=== PATIENT | female | born 1955 | race Caucasian/White ===

== ENCOUNTER → 2016-09-12 | Outpatient (CLI) | payer MEDICARE, OTHER ==
[~2016-09-12] MED LIST: ADVAIR 250-501 EACH INH; ASPIR 8181 MG PO; BENADRYL 25MG C25 MG PO; COLACE 100MG C100 MG PO; DURAGESIC 100 MC1 EA TD; ELIQUIS2.5 MG PO; FEOSOL325 MG PO; FLONASE 0.05% N16 GM; LEVOTHYROXINE75 MCG PO; MELOXICAM15 MG PO; MOBIC15 MG PO; MONTELUKAST SOD10 MG PO; NITROSTAT 0.40.4 MG SL; OXYCODONE HCL E10 MG PO; OXYCONTIN60 MG PO; PERCOCET 10-321 EACH PO; PROTONIX 40 MG40 M1 PO; SIMVASTATIN40 MG PO; SPIRIVA18 MCG INH; VALIUM 2 MG TAB2 MG PO; VENTOLIN HFA 66.7 GM INH; VITAMIN B-1000 MCG/M IM; XARELTO10 MG PO; [UNRECOGNIZED DRUG - OTHER] PO
== END ==
LOC: MAMO 10:40
DX: Z12.31 Encounter for screening mammogram for malignant neoplasm of breast (principal)
CPT/HCPCS: G0202

== ENCOUNTER 2020-07-09 17:19 | Inpatient (IN) | payer OTHER ==
[~2020-07-09] VITALS: Ht 149.9 cm; Wt 79.7 kg
[~2020-07-09 17:19] MED LIST changes: +ADVAIR HFA 115/12 GM INH; +ASPIRIN EC81 MG PO; +DAILY MULTIPLE1 EAC1 PO; +IRON325 M1 PO; +LOPRESSOR 25 MG25 MG PO; +SPIRIVA RESPIMAT4 GM INH; -SPIRIVA18 MCG INH; +VIBRAMYCIN100 MG PO; +XTAMPZA; +ZANAFLEX4 MG PO; +ZANTAC150 MG PO; +ZOLOFT50 MG PO; +[UNRECOGNIZED DRUG - OTHER] PO
[2020-07-09 18:05] LABS: RED BLOOD COUNT 4.4 M/UL (4.00-5.10); WHITE BLOOD COUNT 11.3 K/UL (4.5-11.0)
[2020-07-09 18:28] LABS: BUN/CREATININE RATIO 13 (0-10)
[2020-07-09] MEDS ORDERED: ONDANSETRON HCL8 MG PO (20:37)
[2020-07-09] MEDS ORDERED: CYANOCOBAL1000 MCG/1 INJ (20:39)
[2020-07-09] MEDS ORDERED: VITAMIN D250 MCG PO (20:40)
[2020-07-10 07:27] LABS: HEMOGLOBIN 12.6 gm/dl (12.3-15.3); RED BLOOD COUNT 4.23 M/UL (4.00-5.10); WHITE BLOOD COUNT 13.9 K/UL (4.5-11.0)
[2020-07-10 07:49] LABS: BUN/CREATININE RATIO 8 (0-10)
[2020-07-13 03:41] LABS: HEMOGLOBIN 11.7 gm/dl (12.3-15.3); RED BLOOD COUNT 3.99 M/UL (4.00-5.10); WHITE BLOOD COUNT 14.4 K/UL (4.5-11.0)
[2020-07-13 04:08] LABS: BUN/CREATININE RATIO 20 (0-10)
[2020-07-14 04:25] LABS: HEMOGLOBIN 11.9 gm/dl (12.3-15.3); RED BLOOD COUNT 4.03 M/UL (4.00-5.10); WHITE BLOOD COUNT 14.5 K/UL (4.5-11.0)
[2020-07-14 04:41] LABS: BUN/CREATININE RATIO 25 (0-10)
[2020-07-15 03:09] LABS: HEMOGLOBIN 12.6 gm/dl (12.3-15.3); RED BLOOD COUNT 4.28 M/UL (4.00-5.10)
[2020-07-15 03:16] LABS: WHITE BLOOD COUNT 20.2 K/UL (4.5-11.0)
[2020-07-15 03:27] LABS: BUN/CREATININE RATIO 37 (0-10)
[2020-07-16 06:37] LABS: RED BLOOD COUNT 4.41 M/UL (4.00-5.10); WHITE BLOOD COUNT 19.1 K/UL (4.5-11.0)
[2020-07-16 07:14] LABS: BUN/CREATININE RATIO 36 (0-10)
[2020-07-17 07:01] LABS: HEMOGLOBIN 12.8 gm/dl (12.3-15.3); RED BLOOD COUNT 4.34 M/UL (4.00-5.10); WHITE BLOOD COUNT 17.5 K/UL (4.5-11.0)
[2020-07-17 07:34] LABS: BUN/CREATININE RATIO 29 (0-10)
[2020-07-18 03:01] LABS: HEMOGLOBIN 13.2 gm/dl (12.3-15.3); RED BLOOD COUNT 4.46 M/UL (4.00-5.10); WHITE BLOOD COUNT 18.4 K/UL (4.5-11.0)
[2020-07-18 03:21] LABS: BUN/CREATININE RATIO 28 (0-10)
[2020-07-19 03:08] LABS: HEMOGLOBIN 13.3 gm/dl (12.3-15.3); RED BLOOD COUNT 4.54 M/UL (4.00-5.10); WHITE BLOOD COUNT 19.3 K/UL (4.5-11.0)
[2020-07-19 03:32] LABS: BUN/CREATININE RATIO 45 (0-10)
[2020-07-20 03:55] LABS: HEMOGLOBIN 13.4 gm/dl (12.3-15.3); RED BLOOD COUNT 4.56 M/UL (4.00-5.10); WHITE BLOOD COUNT 16.7 K/UL (4.5-11.0)
[2020-07-20 04:15] LABS: BUN/CREATININE RATIO 41 (0-10)
--- NOTE | 2020-07-20 14:03 | NUR ---
2058 - CARDIOLOGY CALLED ABOUT PT MAXED OUT ON CARDIZEM DRIP AND HR STILL STAYING IN 170S.
[2020-07-21 02:44] LABS: HEMOGLOBIN 13.1 gm/dl (12.3-15.3); RED BLOOD COUNT 4.47 M/UL (4.00-5.10); WHITE BLOOD COUNT 18.1 K/UL (4.5-11.0)
[2020-07-21 03:02] LABS: BUN/CREATININE RATIO 29 (0-10)
[2020-07-22 04:33] LABS: HEMOGLOBIN 12.5 gm/dl (12.3-15.3); RED BLOOD COUNT 4.21 M/UL (4.00-5.10); WHITE BLOOD COUNT 15.8 K/UL (4.5-11.0)
[2020-07-22 05:02] LABS: BUN/CREATININE RATIO 29 (0-10)
[2020-07-22] MEDS ORDERED: ELIQUIS 5 MG TAB5 MG PO (16:25)
[2020-07-22] MEDS ORDERED: LOPRESSOR 50 MG50 MG PO (16:40)
== END 2020-07-22 17:57 | disposition home or self-care (01) | DRG 308 ==
LOC: ER1 17:19 → MED SURG 4 20:20 → CCU 20:20 → PROG CARE 20:20 → CDU 20:20 → CCU 07-10 00:13 → MED SURG 4 07-10 15:11 → PROG CARE 07-17 16:44
PROVIDERS: Internal Medicine; Preventive Medicine Occupational Medicine; ADMIT Internal Medicine
PROC: B24BZZZ Ultrasonography of Heart with Aorta (ICD-10-PCS; 2020-07-11)
PROC: 5A2204Z Restoration of Cardiac Rhythm, Single (ICD-10-PCS; principal; 2020-07-21)
DX: I48.91 Unspecified atrial fibrillation (principal); R57.8 Other shock; J96.21 Acute and chronic respiratory failure with hypoxia; J44.1 Chronic obstructive pulmonary disease with (acute) exacerbation; C77.9 Secondary and unspecified malignant neoplasm of lymph node, unspecified; C34.90 Malignant neoplasm of unspecified part of unspecified bronchus or lung; J98.11 Atelectasis; Z20.822 Contact with and (suspected) exposure to COVID-19; G25.0 Essential tremor; R13.10 Dysphagia, unspecified; J42 Unspecified chronic bronchitis; I34.1 Nonrheumatic mitral (valve) prolapse; I10 Essential (primary) hypertension; K21.9 Gastro-esophageal reflux disease without esophagitis; E78.5 Hyperlipidemia, unspecified; R07.89 Other chest pain; E03.9 Hypothyroidism, unspecified; F41.9 Anxiety disorder, unspecified; M51.36 Other intervertebral disc degeneration, lumbar region; J30.9 Allergic rhinitis, unspecified; T38.0X5A Adverse effect of glucocorticoids and synthetic analogues, initial encounter; E66.01 Morbid (severe) obesity due to excess calories; M41.9 Scoliosis, unspecified; Z96.651 Presence of right artificial knee joint; Z96.641 Presence of right artificial hip joint; Z88.5 Allergy status to narcotic agent; Z88.8 Allergy status to other drugs, medicaments and biological substances; Z68.35 Body mass index [BMI] 35.0-35.9, adult; Z82.49 Family history of ischemic heart disease and other diseases of the circulatory system; Z98.84 Bariatric surgery status; Z99.81 Dependence on supplemental oxygen; Z87.891 Personal history of nicotine dependence; Z90.49 Acquired absence of other specified parts of digestive tract; Z79.01 Long term (current) use of anticoagulants; Z79.82 Long term (current) use of aspirin; Z79.890 Hormone replacement therapy; Z79.899 Other long term (current) drug therapy; Z86.010 Personal history of colon polyps
CPT/HCPCS: ECHO; 36415; 36600; 71045; 71275; 80048; 80053; 82550; 82553; 82803; 82962; 83690; 83874; 83880; 84439; 84443; 84484; 85007; 85025; 85027; 85652; 86140; 93005; 93306; 94640; 94664; 94760; 96365; 96366; 97162; 97530; 99285; J1650; J2543; J2920; J2930; J7070; Q9967; U0002

== ENCOUNTER → 2020-12-18 | Outpatient (CLI) | payer OTHER ==
[~2020-12-18] MED LIST changes: +CYANOCOBAL1000 MCG/1 INJ; +ELIQUIS 5 MG TAB5 MG PO; +LOPRESSOR 50 MG50 MG PO; +ONDANSETRON HCL8 MG PO; +VITAMIN D250 MCG PO
== END ==
LOC: CT 10:30
DX: C34.2 Malignant neoplasm of middle lobe, bronchus or lung (principal)
CPT/HCPCS: 36415; 73201; 73701; 82565; Q9967

== ENCOUNTER 2021-02-06 06:28 | Emergency (ER) | payer OTHER ==
[2021-02-06 07:16] LABS: HEMOGLOBIN 11.4 gm/dl (12.3-15.3); RED BLOOD COUNT 3.49 M/UL (4.00-5.10); WHITE BLOOD COUNT 7.3 K/UL (4.5-11.0)
[2021-02-06 07:29] LABS: BUN/CREATININE RATIO 20 (0-10)
== END 2021-02-06 16:30 ==
LOC: ER1 06:28
PROVIDERS: Family Medicine
DX: I87.1 Compression of vein (principal); E11.9 Type 2 diabetes mellitus without complications; J44.9 Chronic obstructive pulmonary disease, unspecified; Z85.118 Personal history of other malignant neoplasm of bronchus and lung; Z88.5 Allergy status to narcotic agent; Z88.1 Allergy status to other antibiotic agents; Z20.822 Contact with and (suspected) exposure to COVID-19
CPT/HCPCS: 36600; 80053; 82550; 82553; 82803; 83605; 83735; 83874; 83880; 84439; 84443; 84484; 85025; 85610; 93005; 99285; J1885; J2765; Q9967; U0002

== ENCOUNTER → 2021-06-10 | Outpatient (CLI) | payer OTHER | LOC: EXRD 12:50 | DX: R05.9 Cough, unspecified (principal); R91.8 Other nonspecific abnormal finding of lung field | CPT/HCPCS: 71046 ==

== ENCOUNTER 2021-07-02 06:26 | Observation (INO) | payer OTHER ==
[~2021-07-02] VITALS: Ht 149.9 cm; Wt 69.9 kg
[~2021-07-02 06:26] MED LIST changes: -ADVAIR HFA 115/12 GM INH; -LEVOTHYROXINE75 MCG PO; -MONTELUKAST SOD10 MG PO; -PERCOCET 10-321 EACH PO; -SIMVASTATIN40 MG PO; -SPIRIVA RESPIMAT4 GM INH; -VALIUM 2 MG TAB2 MG PO; -VITAMIN D250 MCG PO
[2021-07-02 07:27] LABS: HEMOGLOBIN 11.8 gm/dl (12.3-15.3); RED BLOOD COUNT 3.66 M/UL (4.00-5.10); WHITE BLOOD COUNT 10.8 K/UL (4.5-11.0)
[2021-07-02 08:07] LABS: BUN/CREATININE RATIO 21 (0-10)
[2021-07-02] MEDS ORDERED: SPIRIVA RESPIMAT4 GM INH (09:53)
[2021-07-02] MEDS ORDERED: LEVOTHYROXINE88 MCG PO (09:56)
[2021-07-02] MEDS ORDERED: ZOCOR 40 MG TAB40 MG PO (09:57)
[2021-07-02] MEDS ORDERED: MONTELUKAST SOD10 MG PO (10:02)
[2021-07-02] MEDS ORDERED: VALIUM 2 MG TAB2 MG PO (10:03)
[2021-07-02] MEDS ORDERED: XTAMPZA ER36 MG PO (11:25)
[2021-07-02] MEDS ORDERED: XARELTO20 MG PO (11:26)
[2021-07-02] MEDS ORDERED: FLONASE ALLER15.8 ML (12:52)
[2021-07-02] MEDS ORDERED: PHENERGAN 25 MG25 M1 PO (12:53)
[2021-07-02] MEDS ORDERED: MEGA BIOTIN10000 MCG PO (12:56)
[2021-07-02] MEDS ORDERED: PERCOCET 10-321 EACH PO (13:38)
--- NOTE | 2021-07-02 17:27 | NUR ---
PT WAS BROUGHT TO 2 EAST/OBS UNIT UPON ARRIVAL DUST [employer] [facility] CALLED AND STATES PT NEEDS MOVED TO [facility] 4TH FLOOR CALLED REPORT TO [facility] ON 4TH FLOOR PT WAS MOVED TO ROOM [id number]
[2021-07-02] MEDS ORDERED: ADVAIR HFA 115/12 GM INH (17:43)
[2021-07-02] MEDS ORDERED: VITAMIN D250 MCG PO (20:40)
[2021-07-03 03:11] LABS: WHITE BLOOD COUNT 10.1 K/UL (4.5-11.0)
[2021-07-03 03:13] LABS: HEMOGLOBIN 9.6 gm/dl (12.3-15.3); RED BLOOD COUNT 2.99 M/UL (4.00-5.10)
[2021-07-03 03:42] LABS: BUN/CREATININE RATIO 24 (0-10)
[2021-07-04 03:02] LABS: HEMOGLOBIN 9.3 gm/dl (12.3-15.3); RED BLOOD COUNT 2.89 M/UL (4.00-5.10)
[2021-07-04 03:04] LABS: WHITE BLOOD COUNT 7.5 K/UL (4.5-11.0)
[2021-07-04 03:36] LABS: BUN/CREATININE RATIO 17 (0-10)
[2021-07-04] MEDS ORDERED: DOXYCYCLINE HY100 MG PO (09:04)
[2021-07-04] MEDS ORDERED: MAGNESIUM OXID250 MG PO (09:04)
[2021-07-04] MEDS ORDERED: OMNICEF 300 MG300 MG PO (10:44)
== END 2021-07-04 13:13 | disposition home or self-care (01) ==
LOC: ER1 06:26 → MED SURG 4 11:01 → CDU 11:01 → MED SURG 4 17:24
PROVIDERS: Emergency Medicine; Physician Assistant Medical; ADMIT Internal Medicine
DX: J18.9 Pneumonia, unspecified organism (principal); Z20.822 Contact with and (suspected) exposure to COVID-19; J96.11 Chronic respiratory failure with hypoxia; J44.0 Chronic obstructive pulmonary disease with (acute) lower respiratory infection; I10 Essential (primary) hypertension; E78.5 Hyperlipidemia, unspecified; K21.9 Gastro-esophageal reflux disease without esophagitis; E03.9 Hypothyroidism, unspecified; E83.42 Hypomagnesemia; E87.6 Hypokalemia; E11.9 Type 2 diabetes mellitus without complications; M41.9 Scoliosis, unspecified; E66.9 Obesity, unspecified; R25.1 Tremor, unspecified; I48.91 Unspecified atrial fibrillation; Z68.31 Body mass index [BMI] 31.0-31.9, adult; Z79.01 Long term (current) use of anticoagulants; Z79.51 Long term (current) use of inhaled steroids; Z79.899 Other long term (current) drug therapy; Z86.711 Personal history of pulmonary embolism; Z87.891 Personal history of nicotine dependence; Z88.1 Allergy status to other antibiotic agents; Z88.5 Allergy status to narcotic agent; Z88.6 Allergy status to analgesic agent; Z99.81 Dependence on supplemental oxygen
CPT/HCPCS: 0240U; 36415; 70450; 71045; 80048; 80053; 81001; 83605; 83735; 84132; 85025; 85027; 87040; 87086; 94640; 94664; 94760; 96374; 99285; G0378; J0456; J0696; J3420; J3475; J7030

== ENCOUNTER → 2021-07-16 | Outpatient (CLI) | payer OTHER ==
[~2021-07-16] MED LIST changes: +ADVAIR HFA 115/12 GM INH; +DOXYCYCLINE HY100 MG PO; +FLONASE ALLER15.8 ML; +LEVOTHYROXINE88 MCG PO; +MAGNESIUM OXID250 MG PO; +MEGA BIOTIN10000 MCG PO; +MONTELUKAST SOD10 MG PO; +OMNICEF 300 MG300 MG PO; +PERCOCET 10-321 EACH PO; +PHENERGAN 25 MG25 M1 PO; +SPIRIVA RESPIMAT4 GM INH; +VALIUM 2 MG TAB2 MG PO; +VITAMIN D250 MCG PO; +XARELTO20 MG PO; +XTAMPZA ER36 MG PO; +ZOCOR 40 MG TAB40 MG PO
== END ==
LOC: RAD 13:49
DX: J18.9 Pneumonia, unspecified organism (principal)
CPT/HCPCS: 71046